=== PATIENT | female | born 1995 | race American Indian/Alaskan Native ===

== ENCOUNTER → 2024-06-26 | Outpatient (CLI) | payer BC, MEDICAID, SELFPAY ==
--- NOTE | 2024-06-26 12:24 | XR_ITS ---
Examination: Lumbar spine, 5 views Technique: Lumbar spine AP, lateral, coned lateral lower lumbar spine, bilateral obliques 5 views Exam date and time: June 18, 2024 1332 hours INDICATIONS: Lower back pain 3 years. FINDINGS: Adequate alignment lumbar vertebral bodies No lumbar fracture Mild to moderate disc narrowing L4-L5 Advanced disc narrowing L5-S1 IMPRESSION: No lumbar fracture Advanced degenerative disc disease L5-S1
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
== END | disposition home or self-care (01) ==
PROVIDERS: PCP Nurse Practitioner Family; Referring Provider Nurse Practitioner Family; Visit Provider Nurse Practitioner Family
DX: M48.04 Spinal stenosis, thoracic region (principal); M51.379 Other intervertebral disc degeneration, lumbosacral region without mention of lumbar back pain or lower extremity pain
CPT/HCPCS: 72072; 72110

== ENCOUNTER → 2024-09-05 | Outpatient (CLI) | payer BC, MEDICAID, SELFPAY ==
--- NOTE | 2024-09-05 13:00 | XR_ITS ---
Examination: MRI thoracic spine without contrast. Date and time of exam: September 05, 2024 1324 hrs. Indications: Mid back pain 5 years Technique: Multiple sagittal and axial images of the thoracic spine have been obtained. T1 weighted localizer, sagittal T2 weighted images, TR 30-50, TE 148, T1 weighted sagittal images, TR 650, TE 14, T2-weighted transverse images, TR 6770, TE 142 Findings: Adequate alignment thoracic vertebral bodies on the lateral view No thoracic fracture 3 mm right paracentral T9-T10 disc protrusion T7-T8 4 mm right paracentral disc protrusion indenting the ventral right margin thoracic cord No localized enlargement thoracic cord Impression: T7-T8 4 mm right paracentral disc protrusion indenting the ventral right margin thoracic cord T9-T10 3 mm right paracentral disc protrusion
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
== END | disposition home or self-care (01) ==
PROVIDERS: PCP Nurse Practitioner Family; Referring Provider Nurse Practitioner Family; Visit Provider Nurse Practitioner Family
DX: M51.24 Other intervertebral disc displacement, thoracic region (principal); M51.379 Other intervertebral disc degeneration, lumbosacral region without mention of lumbar back pain or lower extremity pain; M51.369 Other intervertebral disc degeneration, lumbar region without mention of lumbar back pain or lower extremity pain
CPT/HCPCS: 72146; 72148